=== PATIENT | male | born 1990 | race Caucasian/White ===

== ENCOUNTER 2018-03-23 23:23 | Emergency (ER) | payer SELFPAY ==
[~2018-03-23] VITALS: Ht 182.9 cm; Wt 154.2 kg
[2018-03-23 23:25] VITALS: BP 144/88
--- NOTE | 2018-03-23 23:59 | NUR ---
28/M CAME IN ED WITH FAMILY/FRIEND, C/O 5/10 INTERMITTENT SHARP L EAR PAIN, X2 DAYS. WORSENED BY CHEWING. PT REPORTS SUBJECTIVE FEVER 2 DAYS AGO THAT RESOLVED. PT DENIES N/V/D. REDNESS ON BL EARS NOTED. PT REPORTS SWIMMING LAST WEEK. 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
--- NOTE | 2018-03-23 23:59 | NUR ---
PT TAKEN TO BED 10
[2018-03-24] MEDS ORDERED: KETOROLAC 30 MG/ML VIAL IM ONE (01:00)
--- NOTE | 2018-03-24 01:37 | NUR ---
Patient discharged with v/s stable. Written and verbal after care instructions given and explained. Patient alert, oriented and verbalized understanding of instructions. Ambulatory with steady gait. All questions addressed prior to discharge. ID band removed. Patient advised to follow up with PMD. Rx of NAPROSYN, CIPRODEX OTIC SUSPENSION given. Patient educated on indication of medication including possible reaction and side effects. Opportunity to ask questions provided and answered.
[2018-03-24 01:38] VITALS: BP 129/71
== END 2018-03-24 01:37 | disposition home or self-care (01) ==
LOC: MED 23:23
DX: H60.92 Unspecified otitis externa, left ear (principal); Z88.1 Allergy status to other antibiotic agents
CPT/HCPCS: 96372; 99283; J1885

== ENCOUNTER 2018-03-28 09:29 | Emergency (ER) | payer MEDICAID ==
[~2018-03-28] VITALS: Ht 182.9 cm; Wt 154.2 kg
[2018-03-28 09:47] VITALS: BP 149/84
--- NOTE | 2018-03-28 09:47 | NUR ---
PT AMBULATES TO BED 12
--- NOTE | 2018-03-28 09:50 | NUR ---
28y/f bib c/o left ear pain. pt states he was seen in our 03/23/2018; was unable to purchase ear drops; c/o worsening left ear pain with drainage x 8 days; bed down; bedrail up x 1; er md aware and notified of pt status. hx---denies rx---none
--- NOTE | 2018-03-28 10:27 | NUR ---
Patient being evaluated by physician at bedside.
[2018-03-28] MEDS ORDERED: KETOROLAC 60 MG/2 ML VIAL IM ONE (10:30)
[2018-03-28] MEDS ORDERED: LEVOFLOXACIN 500 MG TAB PO ONE (10:30)
--- NOTE | 2018-03-28 11:06 | NUR ---
Chief Lending Officer Note: Per patient's nurse Nilam patient reported having difficulty filling prescriptions. I called and spoke with Marlin from Admitting Dept she stated patient qualifies for [facility] and has provided patient with printed [facility] policy number. I told RN Nilam patient can take printed [facility] information to pharmacy to obtain medication.
[2018-03-28 11:09] VITALS: BP 140/80
--- NOTE | 2018-03-28 11:09 | NUR ---
Patient discharged with v/s stable. Written and verbal after care instructions given and explained. Patient alert, oriented and verbalized understanding of instructions. Ambulatory with steady gait. All questions addressed prior to discharge. ID band removed. Patient advised to follow up with PMD. Rx of cortisporin, cipro, motrin given. Patient educated on indication of medication including possible reaction and side effects. Opportunity to ask questions provided and answered.
== END 2018-03-28 11:09 | disposition home or self-care (01) ==
LOC: MED 09:29
DX: H60.92 Unspecified otitis externa, left ear (principal); Z88.1 Allergy status to other antibiotic agents
CPT/HCPCS: 96372; 99283; J1885

== ENCOUNTER 2024-02-08 11:19 | Emergency (ER) | payer MEDICAID, OTHER ==
[~2024-02-08] VITALS: Ht 185.4 cm; Wt 136.1 kg
[2024-02-08 11:41] VITALS: BP 121/77; PULSE 80; RESP 18; TEMP 98.7; O2SAT 98
[2024-02-08] MEDS: NACL 0.9% 1,000 ML IV SCH (12:11)
[2024-02-08] MEDS: ONDANSETRON 4 MG/2 ML VIAL IVP ONE (12:14)
[2024-02-08 12:22] LABS: BASOPHILS # (AUTO) 0.1 K/uL (0.00-0.22); BASOPHILS % (AUTO) 0.8 % (0.0-2.0); EOSINOPHILS # (AUTO) 0.2 K/uL (0-0.4); EOSINOPHILS % (AUTO) 2.5 % (0.0-4.0); HEMATOCRIT 43.3 % (36-52); HEMOGLOBIN 14.7 g/dL (12.0-18.0); LYMPHOCYTES # (AUTO) 1.8 K/uL (2.0-11.5); LYMPHOCYTES % (AUTO) 24.1 % (20.5-51.1); MEAN CORPUSCULAR HEMOGLOBIN 30 pg (27-31); MEAN CORPUSCULAR HGB CONC 34 g/dL (33-37); MEAN CORPUSCULAR VOLUME 89.2 fL (80-94); MONOCYTES # (AUTO) 0.8 K/uL (0.8-1.0); MONOCYTES % (AUTO) 10.5 % (1.7-9.3); NEUTROPHILS # (AUTO) 4.5 K/uL (1.8-7.7); NEUTROPHILS % (AUTO) 62.1 % (42.2-75.2); PLATELET COUNT (AUTO) 204 K/uL (140-450); RED BLOOD CELL COUNT(AUTO) 4.85 MIL/uL (4.20-6.10); RED CELL DISTRIBUTION WIDTH 13.3 % (11.6-13.7); WHITE BLOOD COUNT (AUTO) 7.3 K/uL (4.8-10.8)
[2024-02-08 12:38] LABS: ANION GAP 19.8 (8-16); CALCIUM 9.5 mg/dL (8.5-10.1); CARBON DIOXIDE 23.8 mmol/L (21-32); CREATININE 0.7 mg/dL (0.6-1.3); POTASSIUM 3.6 mmol/L (3.5-5.1)
[2024-02-08 12:45] LABS: ALBUMIN 4.2 g/dL (3.4-5.0); BILIRUBIN,DIRECT 0.2 mg/dL (0.0-0.3); TOTAL BILIRUBIN 0.6 mg/dL (0.0-1.0); TOTAL PROTEIN, SERUM 8.8 g/dL (6.4-8.2)
[2024-02-08] MEDS ORDERED: ONDA8TAB87 PO (12:58)
[2024-02-08 14:29] VITALS: BP 134/60; PULSE 70; RESP 18; TEMP 97.3; O2SAT 99
== END 2024-02-08 13:41 | disposition home or self-care (01) ==
LOC: MED 11:19
DX: R11.0 Nausea (principal); R63.0 Anorexia; R42 Dizziness and giddiness; R03.0 Elevated blood-pressure reading, without diagnosis of hypertension; E11.9 Type 2 diabetes mellitus without complications; Z98.84 Bariatric surgery status; Z79.1 Long term (current) use of non-steroidal anti-inflammatories (NSAID); Z88.0 Allergy status to penicillin
CPT/HCPCS: 36415; 80048; 80076; 83690; 85025; 96361; 96374; 99283; J2405; J7030